=== PATIENT | female | born 1990 | race Two or more races ===

== ENCOUNTER → 2024-12-12 | Outpatient (CLI) | payer MEDICAID, SELFPAY ==
--- NOTE | 2024-12-12 14:00 | XR_ITS ---
Examination: Breast ultrasound complete, bilateral Date and time of exam: December 12, 2024 1419 hours INDICATIONS: Breast tenderness beginning 6 months ago, palpable lump left breast on clinical examination by physician July 05, 2024 Technique: Real-time grayscale ultrasonographic imaging bilateral breasts, including all 4 quadrants as well as nipple retroareolar and axillary regions. Findings: Sonographic images right and left breast demonstrated no cystic or solid masses IMPRESSION: BI-RADS Category 1: Negative study Given the patient's clinical history, consider diagnostic mammography follow-up
== END | disposition home or self-care (01) ==
PROVIDERS: PCP Family Medicine; Referring Provider Midwife; Visit Provider Midwife
DX: N64.4 Mastodynia (principal)
CPT/HCPCS: 76641